=== PATIENT | female | born 1955 | race Caucasian/White ===

== ENCOUNTER 2021-02-05 06:00 | Day surgery (SDC) | payer OTHER ==
[~2021-02-05 06:00] MED LIST: ALTACE10 MG PO; HYDROCH PO; METFORMIN HCL1000 MG PO
[2021-02-05] MEDS ORDERED: MACROBID 100 M100 MG PO (11:47)
[2021-02-05] MEDS ORDERED: ULTRACET PO (11:47)
== END 2021-02-05 16:10 | disposition home or self-care (01) ==
LOC: CIR.AMB 06:00
PROVIDERS: ATTEND Obstetrics & Gynecology Gynecology
DX: N39.3 Stress incontinence (female) (male) (principal)
CPT/HCPCS: 57288; C1771